=== PATIENT | male | born 1980 | race Caucasian/White ===

== ENCOUNTER 2022-05-01 16:39 | Emergency (ER) | payer OTHER, SELFPAY ==
--- NOTE | 2022-05-01 16:41 | ED.GENADUL_ITS ---
Discharge Plan Disposition Patient Disposition: Home Condition: Good Discharge Details Clinical Impression: Contusion of ribs Primary Care Provider: None,None ED Provider: Tod Vargas and New Rx's Prescriptions: Continued clonazepam 0.5 mg Tablet 0.5 mg PO PRN PRN dextroamphetamine-amphetamine [Adderall] 30 mg Tablet 30 mg PO BID mirtazapine [Remeron] 30 mg Tablet 30 mg PO DAILY bupropion HCl [Wellbutrin XL] 300 mg Tablet Extended Release 24 Hr 300 mg PO DAILY Discharge Instructions Instructions: Rib Contusion (ED) Additional Instructions: Your chest x-ray per my read shows no evidence of lung injury and no definite rib fracture. Over read from radiology is pending you will be notified if any significant findings. Recommend alternating 1 g of acetaminophen with 600 mg of ibuprofen every 4 hours. Follow-up with primary care in 1 to 2 weeks if not improving. Return to ED for any worsening pain, fever, cough, shortness of breath, other concerns. Discharge Data Discharge Date/Time-TO BE ENTERED AT DEPARTURE: 05/01/22 19:11 Medical Decision Making Patient presenting to ED with persistent right posterior rib pain and difficulty breathing because of pain since a fall just about 1 week ago. He has breath sounds bilaterally and O2 sats of 100%. He does have tenderness to palpation of the right posterior lower ribs. Will obtain chest x-ray/right ribs x-rays. X-ray per my read negative for pneumothorax or contusion, no definite rib fracture. Preliminary radiology read in agreement. Patient likely with rib contusion recommend alternating acetaminophen with ibuprofen for pain control. Follow-up primary care 1 to 2 weeks if not improving. Return precautions discussed. HPI General Mode of arrival: ambulatory . Date/Time Provider Initiated Documentation: 05/01/22 16:40 . Limitations to Documentation: no limitations . Information obtained by: patient . HPI Narrative: Patient presents to ED with right sided thoracic/rib pain. Patient reports falling down some stairs just about a week ago. Initially had thoracic and lumbar pain. For the most part things have resolved except for continued right-sided thoracic and rib pain. He has difficulty taking a deep breath as well as moving or raising his arm because of pain. He does not necessarily feel short of breath. He has no abdominal pain. He has noted no hematuria. He has no low back pain at this point. He has had no neurologic symptoms. This occurred while at work and his supervisor [employer] decided since he was still having pain that he should be checked out. Related Data Home Medications Medication Instructions Recorded Confirmed bupropion HCl 300 mg 24 hr tablet, 300 mg PO DAILY 05/01/22 05/01/22 extended release (Wellbutrin XL) clonazepam 0.5 mg tablet 0.5 mg PO PRN PRN 05/01/22 05/01/22 dextroamphetamine-amphetamine 30 30 mg PO BID 05/01/22 05/01/22 mg tablet (Adderall) mirtazapine 30 mg tablet (Remeron) 30 mg PO DAILY 05/01/22 05/01/22 Allergies Allergy/AdvReac Type Severity Reaction Status Date / Time No Known Allergies Allergy Unverified 05/01/22 16:47 Review of Systems Narrative: As per HPI PFSH All Active Problems (Updated 05/01/22 @ 19:02 by Tod Vargas MD) Contusion of ribs (Acute) Medical History ADD (attention deficit disorder) Anxiety Surgical History No significant past surgical history Social History Smoking/Tobacco Use Status: Current-Occasional Tobacco Type: cigarettes Smoking risk assessment performed?: Yes Alcohol Intake: current Alcohol Intake frequency: holidays/special occasions only Drug use: Occasionally Substance use type: marijuana Do you feel safe at home: Yes Do you feel safe in your relationship?: Yes Exam Narrative Exam Narrative: Const: WDWN male in NAD. HEENT: NC/AT. Normal facial exam. Eyes: Normal conjunctiva and sclera. Neck: Supple. Trachea midline. No midline tendernes. Lungs: Normal respiratory effort. Lungs are clear. Tender to palpation right posterior lower ribs. Cor: RRR without murmur/gallop. Good radial pulses. GI: Soft. NT/ND. No guarding or rebound. Back: No CVAT. No midline tenderness. Neuro: A+O x 3. Normal speech, mentation, gait. Cranial nerves II - XII grossly intact. No gross motor or sensory deficit. Ext: No C/C/E. Skin: Warm and dry without bruising.
[2022-05-01 16:43] VITALS: BP 145/107; PULSE 101; RESP 18; TEMP 36.9; O2SAT 100
--- NOTE | 2022-05-01 17:00 | DI.RAD_ITS ---
Exam(s) XR RIBS RT W PA LAT CHEST EXAM: XR RIBS RT W PA LAT CHEST CLINICAL HISTORY: trauma/pain TECHNIQUE: 2D digital imaging was performed.Four images were obtained. COMPARISON: No exams were available for comparison FINDINGS: MEDIASTINUM: Normal. HEART: Normal. PULMONARY VASCULATURE: Normal. LUNGS: Clear. PLEURAL SPACE: No pleural effusion or pneumothorax. BONE:Normal. RIGHT RIBS: Normal. OTHER FINDINGS:Normal. IMPRESSION: 1. No acute pulmonary findings. 2. Unremarkable right ribs. DATA REPOSITORY: RADIATION DOSE DELIVERED:
--- NOTE | 2022-05-01 21:26 | DI.VRAD_ITS ---
PROCEDURE INFORMATION: Exam: XR Right Ribs Exam date and time: 05/01/2022 5:50 PM Age: 42 years old Clinical indication: Right-sided; Other: Trauma/pain; Patient HX: PT fell last week, RT rib pain posterior TECHNIQUE: Imaging protocol: Radiologic exam of the Right ribs. Views: 2 views. COMPARISON: No relevant prior studies available. FINDINGS: Bones/joints: Normal. Soft tissues: Normal. IMPRESSION: No acute displaced rib fracture. PROCEDURE INFORMATION: Exam: XR Chest Exam date and time: 05/01/2022 5:50 PM Age: 42 years old Clinical indication: Right-sided; Other: Trauma/pain; Patient HX: PT fell last week, RT rib pain posterior TECHNIQUE: Imaging protocol: Radiologic exam of the chest. Views: 2 views. COMPARISON: No relevant prior studies available. FINDINGS: Lungs: Normal. Pleural spaces: Unremarkable. No pleural effusion. No pneumothorax. Heart/Mediastinum: Normal. Bones/joints: Mild levoscoliosis of the thoracic spine. IMPRESSION: No acute cardiopulmonary abnormality. Dictated and Authenticated by: Danny Anthony MD. Ordering:YESENIA Baron MD
== END 2022-05-01 19:11 | disposition home or self-care (01) ==
PROVIDERS: Emergency Provider Emergency Medicine
DX: S22.41XA Multiple fractures of ribs, right side, initial encounter for closed fracture (principal); W10.9XXA Fall (on) (from) unspecified stairs and steps, initial encounter
CPT/HCPCS: 99283; 71046; 71100; 99282